=== PATIENT | male | born 1990 | race Hispanic/Latino ===

== ENCOUNTER 2019-01-06 07:28 | Emergency (ER) | payer SELFPAY ==
[2019-01-06] MEDS ORDERED: IBUPROFEN 800 MG TAB PO ONE (07:54)
--- NOTE | 2019-01-06 07:56 | Emergency Department Report ---
Vomiting/Diarrhea - HPI Chief Complaint: Abdominal Pain Stated Complaint: FLU SYMPTOMS Time Seen by Provider: 01/06/19 07:54 Duration: Today Severity: mild Nausea/Vomiting Severity: None Diarrhea Severity: None Pain Severity: None Symptoms: Yes Able to Tolerate Fluids, No Watery Diarrhea, No Bloody diarrhea, No Fever, No Recent Unusual Foods, No Recent Untreated Water, No Recent use of Antibiotics, No Family w/ Similar Symptoms, No Contacts w/ Similar Symptoms, No Rash, No Hematuria, No Recent URI Symptoms Other History: 28 yo male come to ER this am co not feeling well. He states he felt like he might have the flu so he did not go to work. Diarrhea x 3 yesterday; no fever or chills; no n/v. Ambulatory and non ill appearing on exam. ED Review of Systems ROS: Stated complaint: FLU SYMPTOMS Other details as noted in HPI Comment: All other systems reviewed and negative ED Past Medical Hx - Past Medical History Previous Medical History?: No - Surgical History Past Surgical History?: No - Family History Family history: no significant - Social History Smoking Status: Current Every Day Smoker Substance Use Type: Alcohol, Marijuana Vomiting Diarrhea Exam - Exam General: Vital signs noted. No distress. Alert and acting appropriately. HEENT: Yes Moist Mucous Membranes, No Pharyngeal Erythema, No Pharyngeal Exudates Neck: No Adenopathy, No Rigidity Lungs: Yes Clear Lung Sounds, Yes Good Air Exchange, No Wheezes, No Stridor Heart exam: Regular: Yes Abdomen: Tenderness: No, Peritoneal Signs: No, Distention: No, Hyperactive Bowel sounds: No Skin exam: Rash: No Neurologic: Alert and oriented, no deficits. Musculoskeletal: Unremarkable. ED Medical Decision Making - Medical Decision Making non ill appearing ambulatory taking po no vomiting only symptoms diarrhea yesterday and not feeling well this AM no fever no tachycardia no hypotension PMH NONE PSH hernia repair at 14 Rx none Thc/ETOH/cig smoker RN states pt has left the ER. Vital Signs - 24 hr 01/06/19 07:35 Temperature 97.7 F Pulse Rate 68 Respiratory 16 Rate Blood Pressure 115/77 O2 Sat by Pulse 100 Oximetry - Differential Diagnosis viral illness/ gastroenteritis Critical care attestation.: If time is entered above; I have spent that time in minutes in the direct care of this critically ill patient, excluding procedure time. ED Disposition Clinical Impression: Diarrhea Disposition: Z-07 MED SCREENING EXAM-LEFT Is pt being admited?: No Does the pt Need Aspirin: No Condition: Stable Referrals: OCHOA MUSA MD [Staff Physician] - 3-5 Days Time of Disposition: 07:55
[2019-01-06 08:03] VITALS: BP 115/77
== END 2019-01-06 08:15 | disposition left against medical advice (07) ==
LOC: ED 07:28
DX: R19.7 Diarrhea, unspecified (principal); F17.200 Nicotine dependence, unspecified, uncomplicated; F12.10 Cannabis abuse, uncomplicated
CPT/HCPCS: 99281